=== PATIENT | male | born 1955 | race Two or more races ===

== ENCOUNTER 2019-03-19 17:45 | Emergency (ER) | payer OTHER ==
[~2019-03-19] VITALS: Ht 182.9 cm; Wt 113.4 kg
[~2019-03-19 17:45] MED LIST: CIPRO500 MG PO; COZAAR50 MG; FLAGYL500MG PO; GLIPIZIDE ER5 MG; LEVSIN/SL0.125 MG SL; PEPCID40 MG PO; ZOCOR40 MG; ZOFRAN4 MG PO
[2019-03-19] MEDS ORDERED: METFORMIN HCL1000 M2 (18:01)
[2019-03-19] MEDS ORDERED: LIPITOR40 MG (18:01)
== END 2019-03-19 19:26 | disposition home or self-care (01) ==
LOC: ER 17:45
DX: K05.30 Chronic periodontitis, unspecified (principal)

== ENCOUNTER 2019-05-21 21:18 | Emergency (ER) | payer OTHER ==
[~2019-05-21] VITALS: Ht 180.3 cm; Wt 108.9 kg
[~2019-05-21 21:18] MED LIST changes: +LIPITOR40 MG; +METFORMIN HCL1000 M2
== END 2019-05-21 23:00 | disposition home or self-care (01) ==
LOC: ER 21:18
DX: K04.7 Periapical abscess without sinus (principal); K08.89 Other specified disorders of teeth and supporting structures

== ENCOUNTER 2019-10-24 10:05 | Emergency (ER) | payer OTHER ==
[~2019-10-24] VITALS: Ht 182.9 cm; Wt 122.5 kg
[2019-10-24] MEDS ORDERED: CODE1TAB37 PO (10:31)
== END 2019-10-24 10:38 | disposition home or self-care (01) ==
LOC: ER 10:05
DX: S90.32XA Contusion of left foot, initial encounter (principal); W18.09XA Striking against other object with subsequent fall, initial encounter; Y93.89 Activity, other specified; Y92.018 Other place in single-family (private) house as the place of occurrence of the external cause; Y99.8 Other external cause status

== ENCOUNTER 2019-11-04 18:42 | Emergency (ER) | payer OTHER ==
[~2019-11-04] VITALS: Ht 182.9 cm; Wt 124.7 kg
[~2019-11-04 18:42] MED LIST changes: +CODE1TAB37 PO
== END 2019-11-04 19:27 | disposition home or self-care (01) ==
LOC: ER 18:42
DX: L03.116 Cellulitis of left lower limb (principal)

== ENCOUNTER 2019-11-14 16:13 | Emergency (ER) | payer OTHER ==
[~2019-11-14] VITALS: Ht 182.9 cm; Wt 122.5 kg
== END 2019-11-14 17:43 | disposition home or self-care (01) ==
LOC: ER 16:13
DX: L97.529 Non-pressure chronic ulcer of other part of left foot with unspecified severity (principal)

== ENCOUNTER 2020-03-12 11:19 | Outpatient (CLI) | payer OTHER | END 2020-03-12 15:00 | disposition home or self-care (01) | LOC: PPH VACUNA 11:19 | DX: Z23 Encounter for immunization (principal) ==

== ENCOUNTER 2020-04-02 11:11 | Outpatient (CLI) | payer OTHER | END 2020-04-02 16:48 | disposition home or self-care (01) | LOC: PPH VACUNA 11:11 | PROVIDERS: ATTEND Emergency Medicine Pediatric Emergency Medicine | DX: Z23 Encounter for immunization (principal) ==

== ENCOUNTER 2020-06-04 13:05 | Outpatient (CLI) | payer OTHER | END 2020-06-04 13:29 | disposition home or self-care (01) | LOC: RAD 13:05 → MRI 13:15 → RAD 13:29 | PROVIDERS: ATTEND Specialist | DX: E11.21 Type 2 diabetes mellitus with diabetic nephropathy (principal); M86.08 Acute hematogenous osteomyelitis, other sites | CPT/HCPCS: 73721 ==

== ENCOUNTER 2020-06-14 17:16 | Inpatient (IN) | payer OTHER ==
[~2020-06-14] VITALS: Ht 182.9 cm; Wt 127.0 kg
== END 2020-06-15 21:02 | disposition left against medical advice (07) | DRG 603 ==
LOC: ER 17:16 → MEDI 21:32
PROVIDERS: ADMIT Specialist; ATTEND Specialist
DX: L03.116 Cellulitis of left lower limb (principal); Z16.39 Resistance to other specified antimicrobial drug; B95.62 Methicillin resistant Staphylococcus aureus infection as the cause of diseases classified elsewhere; I10 Essential (primary) hypertension; E78.49 Other hyperlipidemia; L97.529 Non-pressure chronic ulcer of other part of left foot with unspecified severity; Z20.822 Contact with and (suspected) exposure to COVID-19

== ENCOUNTER 2020-09-29 16:58 | Emergency (ER) | payer OTHER ==
[~2020-09-29] VITALS: Ht 182.9 cm; Wt 122.5 kg
[2020-09-29] MEDS ORDERED: METFORMIN HCL500 M1 PO (17:24)
[2020-09-29] MEDS ORDERED: GLIMEPIRIDE4 M1 PO (17:25)
[2020-09-29] MEDS ORDERED: IRBESARTAN150 MG PO (17:25)
[2020-09-29] MEDS ORDERED: EZETIMIBE10 MG PO (17:25)
== END 2020-09-29 20:32 | disposition home or self-care (01) ==
LOC: ER 16:58
DX: R00.2 Palpitations (principal); F06.4 Anxiety disorder due to known physiological condition

== ENCOUNTER 2021-01-23 09:38 | Emergency (ER) | payer OTHER ==
[~2021-01-23] VITALS: Ht 182.9 cm; Wt 117.9 kg
[~2021-01-23 09:38] MED LIST changes: +EZETIMIBE10 MG PO; +GLIMEPIRIDE4 M1 PO; +IRBESARTAN150 MG PO; +METFORMIN HCL500 M1 PO
[2021-01-23] MEDS ORDERED: AVAPRO75 MG PO (10:14)
[2021-01-23] MEDS ORDERED: METFORMIN HCL500 MG (10:15)
== END 2021-01-23 10:49 | disposition home or self-care (01) ==
LOC: ER 09:38
DX: S91.241A Puncture wound with foreign body of right great toe with damage to nail, initial encounter (principal); W50.0XXA Accidental hit or strike by another person, initial encounter; Y93.89 Activity, other specified; Y92.89 Other specified places as the place of occurrence of the external cause; Y99.8 Other external cause status

== ENCOUNTER 2021-12-23 12:45 | Outpatient (CLI) | payer OTHER ==
[~2021-12-23 12:45] MED LIST changes: +AVAPRO75 MG PO; +METFORMIN HCL500 MG
== END 2021-12-23 12:55 | disposition home or self-care (01) ==
LOC: PPH VACUNA 12:45
PROVIDERS: ATTEND Emergency Medicine Pediatric Emergency Medicine
DX: Z23 Encounter for immunization (principal)

== ENCOUNTER 2022-12-30 07:38 | Emergency (ER) | payer OTHER ==
[~2022-12-30] VITALS: Ht 182.9 cm; Wt 108.9 kg
[2022-12-30 08:49] LABS: HEMATOCRIT 45.7 % (39.0-48.0); HEMOGLOBIN 15.4 g/dL (13-16.00); MEAN CELL VOLUME 83.7 fL (80.0-100.00); MEAN CORPUSCULAR HEMOGLOBIN 28.3 pg (27.00-32.0); MEAN CORPUSCULAR HGB CONC 33.8 g/dl (32.0-36.0); PLATELET COUNT 260 K/uL (150-450); RED BLOOD COUNT 5.46 M/uL (4.00-6.00); RED CELL DISTRIBUTION WIDTH 14.7 % (11.5-14.5)
== END 2022-12-30 11:14 | disposition home or self-care (01) ==
LOC: ER 07:38
PROVIDERS: General Practice
DX: J10.1 Influenza due to other identified influenza virus with other respiratory manifestations (principal); B34.9 Viral infection, unspecified; R53.81 Other malaise; Z20.822 Contact with and (suspected) exposure to COVID-19; I10 Essential (primary) hypertension; E11.9 Type 2 diabetes mellitus without complications; Z79.84 Long term (current) use of oral hypoglycemic drugs; Z88.6 Allergy status to analgesic agent; Z91.013 Allergy to seafood

== ENCOUNTER 2024-09-11 08:14 | Outpatient (CLI) | payer OTHER ==
[2024-09-11 08:56] LABS: BASO % 0.6 % (0.1-1.2); EOS # 0.22 (0.04-0.54); EOS % 2.8 % (0.7-7.0); HEMATOCRIT 45.7 % (40.1-51.0); LYMPH % 38.4 % (19.3-53.1); MEAN CORPUSCULAR HEMOGLOBIN 28.1 pg (25.6-32.2); MONO # 0.55 (0.24-0.82); NEUT # 3.89 (1.56-6.13); NEUT % 49.8 % (34.0-71.1); PLATELET COUNT 306 K/uL (163-369); RED BLOOD COUNT 5.33 M/uL (4.63-6.08); RED CELL DISTRIBUTION WIDTH 14.2 % (11.6-14.4)
[2024-09-11 09:31] LABS: INR 0.97; PARTIAL THROMBOPLASTIN TIME 23.5 SECONDS (22.0-34.0); PROTHROMBIN TIME 10.6 SECONDS (9.0-11.5)
[2024-09-11 10:24] LABS: BILIRUBIN TOTAL 0.49 mg/dL (0.3-1.2); CREATININE SERUM 0.99 mg/dL (0.70-1.30); GFR 74.73; GLOBULINA 3.3 G/DL (2.4-3.5); POTASSIUM 5.19 mEq/L (3.5-5.1); TOTAL PROTEIN 7.3 gm/dL (6.4-8.2)
== END 2024-09-11 10:09 | disposition home or self-care (01) ==
LOC: LAB 08:14
PROVIDERS: ATTEND Ophthalmology
DX: D68.8 Other specified coagulation defects (principal); H25.011 Cortical age-related cataract, right eye; Z01.811 Encounter for preprocedural respiratory examination; I10 Essential (primary) hypertension